=== PATIENT | male | born 2000 | race Caucasian/White ===

== ENCOUNTER 2020-04-09 03:21 | Emergency (ER) | payer BC ==
[2020-04-09] MEDS ORDERED: Lactated Ringers 1,000 ML IV SCH (03:30)
[2020-04-09] MEDS ORDERED: Diphtheria,Pertussis(Acell),Tetanus Vaccine 0.5 ML Syringe IM ONE (03:37)
[2020-04-09] MEDS ORDERED: HYDROmorphone 1 MG/ML Syringe IVPUSH ONE (03:37)
[2020-04-09] MEDS ORDERED: ceFAZolin 2 GM in Premix Bag 1 BAG IV ONE (03:37)
[2020-04-09] MEDS ORDERED: Metoclopramide 10 MG/2 ML SDV IVPUSH ONE (03:38)
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
== END 2020-04-09 04:15 ==
LOC: JD.ED 03:21
DX: S00-T88 Injury, poisoning and certain other consequences of external causes (principal); F10.120 Alcohol abuse with intoxication, uncomplicated; R79.89 Other specified abnormal findings of blood chemistry; Z20.828 Contact with and (suspected) exposure to other viral communicable diseases; V49.49XA Driver injured in collision with other motor vehicles in traffic accident, initial encounter
CPT/HCPCS: 36415; 71045; 73060; 80053; 80307; 85007; 85027; 85610; 85730; 86850; 86900; 86901; 87635; 96365; 96375; 99285; J0690; J1170; J2765; J7120; U0002

== ENCOUNTER 2023-05-19 14:29 | Emergency (ER) | payer BC ==
[2023-05-19 17:06] LABS: HEMATOCRIT 44.2 % (42.0-52.0); HEMOGLOBIN 14.6 gm/dl (14.0-18.0); MEAN CORPUSCULAR HEMOGLOBIN 30.9 pg (28.0-32.0); MEAN CORPUSCULAR VOLUME 93.6 fl (83.0-99.0); MEAN PLATELET VOLUME 9.4 fl (9.4-12.4); PLATELET COUNT,PLT 250 K/mm3 (150-400); RED BLOOD CELL COUNT 4.72 M/mm3 (4.52-5.90); WHITE BLOOD CELL COUNT,WBC 9.37 K/mm3 (3.9-11.3)
[2023-05-19] MEDS ORDERED: Iopamidol 755 Mg/ML 100 ML Bottle IVPUSH ONE (17:07)
[2023-05-19] MEDS ORDERED: Sodium Chloride 0.9% 100 ML IV SCH (17:15)
[2023-05-19] MEDS ORDERED: Apixaban 5 MG Tab PO ONE (17:26)
[2023-05-19 17:27] LABS: A/G RATIO 0.8 (1-2); ALBUMIN 3.4 g/dl (3.4-5.0); ANION GAP 16.2 (5-15); BILIRUBIN TOTAL 0.6 mg/dL (0.2-1.0); CALCIUM 9.2 mg/dL (8.5-10.1); CREATININE 1.3 mg/dL (0.7-1.3); EST CRCL DRUG DOSING (CG) 90.47 mL/min; POTASSIUM,K 4.2 mEq/L (3.5-5.1); PROTEIN TOTAL,TP 7.5 g/dl (6.4-8.2)
== END 2023-05-19 18:22 | disposition home or self-care (01) ==
LOC: JD.ED 14:29
DX: I82.432 Acute embolism and thrombosis of left popliteal vein (principal); I26.94 Multiple subsegmental thrombotic pulmonary emboli without acute cor pulmonale
CPT/HCPCS: 36415; 71275; 80053; 85027; 93971; 99283; A9270; J3490; Q9967

== ENCOUNTER 2023-09-02 12:18 | Emergency (ER) | payer BC ==
[2023-09-02 12:55] LABS: BASOPHILS ABSOLUTE AUTO 0.1 K/mm3 (0.0-0.2); BASOPHILS PERCENT AUTO 0.5 % (0.0-1.0); EOSINOPHILS ABSOLUTE AUTO 0.1 K/mm3 (0.0-0.4); EOSINOPHILS PERCENT AUTO 0.6 % (0.0-6.0); HEMATOCRIT 52.4 % (42.0-52.0); HEMOGLOBIN 17.9 gm/dl (14.0-18.0); IMMATURE GRAN ABSOLUTE AUTO 0.07 K/mm3 (0.00-0.05); IMMATURE GRAN PERCENT AUTO 0.4 % (0.0-0.4); LYMPHOCYTES ABSOLUTE AUTO 2.3 K/mm3 (1.0-4.8); LYMPHOCYTES PERCENT AUTO 14.9 % (24.0-44.0); MEAN CORPUSCULAR HEMOGLOBIN 31.1 pg (28.0-32.0); MEAN CORPUSCULAR HGB CONC 34.2 g/dl (32.0-36.0); MEAN CORPUSCULAR VOLUME 91.1 fl (83.0-99.0); MEAN PLATELET VOLUME 9.3 fl (9.4-12.4); MONOCYTES ABSOLUTE AUTO 1.7 K/mm3 (0.0-0.8); MONOCYTES PERCENT AUTO 10.7 % (0.0-8.0); NEUTROPHILS ABSOLUTE AUTO 11.4 K/mm3 (1.8-7.7); NEUTROPHILS PERCENT AUTO 72.9 % (41.0-71.0); PLATELET COUNT,PLT 285 K/mm3 (150-400); RED BLOOD CELL COUNT 5.75 M/mm3 (4.52-5.90); WHITE BLOOD CELL COUNT,WBC 15.63 K/mm3 (3.9-11.3)
[2023-09-02] MEDS: Heparin Sodium 5,000 Units/ML Vial IVPUSH ONE (13:10)
[2023-09-02] MEDS: Heparin Sodium/D5W 25,000 UNITS/500 ML BAG IV SCH (13:11)
[2023-09-02] MEDS: Sodium Chloride 0.9% 1,000 ML IV SCH (13:13)
[2023-09-02] MEDS: Sodium Chloride 0.9% 10 ML Syringe FLUSH PRN (13:16)
[2023-09-02 13:25] LABS: SLIDE REVIEW ABNORMAL SMEAR
[2023-09-02 13:41] LABS: INR 1.1; PROTHROMBIN TIME 11.7 SECONDS (9.7-12.0)
[2023-09-02 13:53] LABS: ALBUMIN 3.6 g/dl (3.4-5.0); ANION GAP 15.5 (5-15); BILIRUBIN TOTAL 0.7 mg/dL (0.2-1.0); BUN/CREATININE RATIO 10.6 (14-18); CALCIUM 9.2 mg/dL (8.5-10.1); CREATININE 1.7 mg/dL (0.7-1.3); EST CRCL DRUG DOSING (CG) 66.43 mL/min; MAGNESIUM 1.7 mg/dL (1.8-2.4); POTASSIUM,K 4.5 mEq/L (3.5-5.1); PROTEIN TOTAL,TP 7.2 g/dl (6.4-8.2); TSH 2.722 uIU/mL (0.358-3.74)
[2023-09-02] MEDS ORDERED: Sodium Chloride 0.9% 10 ML Syringe FLUSH PRN (14:08)
[2023-09-02] MEDS: Sodium Chloride 0.9% 100 ML IV SCH (14:22)
[2023-09-02] MEDS: Iopamidol 755 Mg/ML 100 ML Bottle IVPUSH ONE (14:22)
== END 2023-09-02 17:50 ==
LOC: JD.ED 12:18
DX: I26.99 Other pulmonary embolism without acute cor pulmonale (principal); F17.210 Nicotine dependence, cigarettes, uncomplicated
CPT/HCPCS: 36415; 71045; 71275; 80053; 83690; 83735; 83880; 84443; 84484; 85025; 85379; 85610; 85730; 93005; 96365; 96366; 99285; J1644; J3490; J7030; Q9967